=== PATIENT | male | born 2000 | race Caucasian/White ===

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

== ENCOUNTER 2020-02-20 14:57 | Emergency (ER) | payer SELFPAY ==
[2020-02-20 14:58] VITALS: BP 134/90; PULSE 97; RESP 14; TEMP 37; O2SAT 100; BMI 28.2
--- NOTE | 2020-02-20 15:02 | NURSING ---
NO OLD EKGS
--- NOTE | 2020-02-20 15:16 | ED.DCSUM_ITS ---
- ER Visit Summary Date of Service: 02/20/20 Chief Complaint: Chest pain History of Present Illness: The patient is a 19 M who presents with chest pain that began today. Patient states it began after he was using methamphetamines. Patient states he uses methamphetamines daily. Patient states he smokes, i njects, and snorts methamphetamines. Patient describes his pain as aching. Patient states pain is over the substernal area. Patient denies any radiation of the pain. Patient states nothing makes it better or worse. Patient denies any nausea or vomiting. Patient denies any diaphoresis. Patient does admit to some shortness of breath and a cough. Patient denies any fevers or chills. Physical Examination: Vital signs are stable. Patient is afebrile. Patient is in no acute distress. Oral mucosa is pink and moist. Neck is supple. Trachea is midline. There is no JVD noted. Heart was regular rate and rhythm. Lungs are clear and equal bilaterally. Abdomen is soft. Bowel sounds are normal. There is no tenderness. There is no rebound or guarding noted. Skin is warm dry. Cranial nerves II through XII are intact. There are no focal motor or sensory deficits noted. Extremities are intact. There is no calf tenderness or edema. Test Results: EKG showed normal sinus rhythm with a rate of 88. There are no acute ST or T wave changes. CBC was within normal limits. Basic metabolic profile showed a potassium of 2.7. Troponin was normal. Portable chest x-ray was obtained. There is no acute cardiopulmonary process. This was interpreted by the radiologist and reviewed by myself. Emergency Department Course and Treatment: Patient was given aspirin here. Patient is feeling better on reevaluation. Patient was given oral potassium as well as IV potassium. Patient was instructed to follow-up with his primary care physician in 5 to 7 days. Patient was also given referral to [facility]. Patient understood and was agreeable with the plan. All questions were answered. Disposition: Discharge home Impression: 1. Chest pain 2. Methamphetamine abuse 3. Hypokalemia This note was generated with Clandestine Developmentation software. It may contain incorrect words, spelling, and punctuation that were not noted in review of the chart prior to signing ED Disposition - Plan for ED Patient: Disposition: Home or Assisted Living Diagnosis: Chest pain of uncertain etiology, Substance abuse, Hypokalemia Instructions: ED Chest Pain Atypical Unkn Cause Referrals: [facility] [STAFF PHYSICIAN] - 3-5 Days
--- NOTE | 2020-02-20 15:16 | EKG12_ITS ---
Test Reason : CP Blood Pressure : / mmHG Vent. Rate : 088 BPM Atrial Rate : 088 BPM P-R Int : 196 ms QRS Dur : 090 ms QT Int : 348 ms P-R-T Axes : 046 075 -06 degrees QTc Int : 421 ms Normal sinus rhythm ST & T wave abnormality, consider inferior ischemia Abnormal ECG Confirmed by MOISES REYES, RADHA ([id number]), make up editor MADISON HAN ([id number]) on 02/22/2020 1:14:35 PM Referred By: YAKELIN/KARYN Confirmed By:RADHA DE LEON MD
[2020-02-20] MEDS: Aspirin 81 MG TAB.CHEW 324 MG PO (15:37)
[2020-02-20 15:38] VITALS: O2SAT 100
--- NOTE | 2020-02-20 15:45 | RAD_ITS ---
STUDY: X-RAY CHEST REASON FOR EXAM: Male, 19 years old. Chest pain after using METHAMPHETAMINE.. TECHNIQUE: Single AP portable view of the chest. COMPARISON: Chest and right RIBS, 07-14-19. FINDINGS: The lungs are clear and expanded. There is no demonstrated pleural abnormality. Normal size heart. Normal mediastinum and cheryl. Normal visualized pulmonary arteries. Normal visualized aortic arch and descending thoracic aorta. Normal visualized thoracic spine. Normal visualized ribs, clavicles, and shoulders. There is no demonstrated abnormality of the visualized soft tissue structures of the upper abdomen. RAD/Chest 1 View (Portable) IMPRESSION: No acute cardiopulmonary disease or major interval change. Electronically Signed: Pillo Willson DO at 16:17 EDT Tel [phone], Service support ,
[2020-02-20 15:50] LABS: Absolute Lymphocyte Count 0.87 X10^3/uL (0.83-4.51); Absolute Neutrophil Count 7.1 X10^3/uL (2.0-7.7); Basophil# 0.02 X10^3/uL; Basophil% 0.2 % (0-1); Eosinophil# 0.03 X10^3/uL; Eosinophils% 0.4 % (0-5); Hematocrit 42.6 % (40-54); Hemoglobin 15.5 g/dL (13.0-16.5); Lymphocyte # 0.87 X10^3/ul (4.0); Lymphocyte % 10.3 % (19-41); Mean Corp Hgb Conc 36.4 g/dL (32-36); Mean Corpuscular Hgb 31.8 pg (27.0-32.0); Mean Corpuscular Volume 87.3 fL (80-94); Mean Platelet Vol. 10.8 fl (6.2-12.0); Monocyte# 0.47 X10^3/uL; Monocyte% 5.5 % (0-10); NRBC Flagged by Analyzer 0 % (0-5); Neutrophil # 7.06 X10^3/uL (2.7-7.7); Neutrophil % 83.2 % (47-70); Platelet Count 171 K/mm3 (150-450); RBC Distribution Width CV 12.6 % (11.6-14.6); RBC Distribution Width SD 39.6 fl (35.1-43.9); Red Blood Count 4.88 M/mm3 (4.6-6.2); White Blood Count 8.5 K/mm3 (4.4-11.0)
[2020-02-20 16:21] LABS: Anion Gap 6 (5-15); BUN 8 mg/dL (7-18); BUN/Creat Ratio 7.1 RATIO (10-20); Calcium,Total 9.4 mg/dL (8.5-10.1); Chloride 107 mmol/L (98-107); Creatinine, Serum 1.12 mg/dL (0.70-1.30); EST Glomerular Filtration Rate 90 mL/min (>60); Est Glom Filt Rate - Afr Amer 108 mL/min (>60); Estimated Creatinine Clearance 106.09 ml/min; Glucose 117 mg/dL (74-106); Potassium 2.7 mmol/L (3.5-5.1); Sodium Level 138 mmol/L (136-145)
[2020-02-20] MEDS: Potassium Chloride 10mEq/100mL 10 MEQ/100 ML IV.SOLN. 100 MEQ IV BOLUS (17:05)
--- NOTE | 2020-02-20 17:29 | CM.ED ---
SOCIAL WORK Informant: Nursing Reason for Consult: Substance abuse resources Met with patient in room. Introduced role and reason for referral. Patient admits to recent use of meth and states has used heroin in the past. Discussed options for treatment. Patient provided with resource packet. All questions answered. Plan: Home Aleksandr Sanders MSW, ART LIBRARIAN
[2020-02-20 17:42] VITALS: BP 149/96; PULSE 101; RESP 16; O2SAT 100
[2020-02-20 18:21] VITALS: RESP 16
== END 2020-02-20 18:22 | disposition home or self-care (01) ==
PROVIDERS: Emergency Provider Emergency Medicine
DX: R07.9 Chest pain, unspecified (principal); E87.6 Hypokalemia; F15.10 Other stimulant abuse, uncomplicated; Z72.0 Tobacco use
CPT/HCPCS: 71045; 80048; 84484; 85025; 93005; 96365; 99285; J7040

== ENCOUNTER 2020-02-27 18:33 | Emergency (ER) | payer SELFPAY ==
[2020-02-27 18:34] VITALS: BP 120/92; PULSE 88; RESP 18; TEMP 36.4; O2SAT 97; BMI 28.8
--- NOTE | 2020-02-27 19:01 | ED.VISSUMM ---
- ER Visit Summary Date of Service: 02/27/20 Chief Complaint: Abscess History of Present Illness: The patient is a 19 M who injects methamphetamines. He has an abscess to his right forearm. Physical Examination: Patient has a 5 cm abscess to his right proximal forearm, distal to the AC fossa. He is neurovascular intact distally. Test Results: None performed Emergency Department Course and Treatment: Skin was anesthetized with lidocaine infiltration. A superficial incision was made with an 11 blade to express pus and serosanguineous discharge. No significant bleeding or pulsatile bleeding was noted. He remained neurovascularly intact. Pus was expressed. A small amount of induration remained. 1/4 inch packing was placed without difficulty. This was secured in place with tape. Dressing applied. Patient tolerated this well. Patient will be started on Bactrim and Keflex. He was referred for outpatient follow-up. He was advised that this may recur. I do not anticipate any neurovascular issues, but he should return if he has significant bleeding, numbness, or any other concerns. Return for fever or any signs of spreading infection. Treatment Plan: As above Disposition: Discharge Impression: Right forearm abscess This note was generated with [employer] dictation software. It may contain incorrect words, spelling, and punctuation that were not noted in review of the chart prior to signing ED Disposition - Plan for ED Patient: Disposition: Home or Assisted Living Instructions: ED Abscess Incision And Drainage Prescriptions: Smz/Tmp Ds [Bactrim Ds] 1 tab PO BID #14 tab Prescription Printed Cephalexin [Keflex] 500 mg PO Q6 #28 cap Prescription Printed Ibuprofen [Motrin] 800 mg PO TID PRN PRN #20 tab PRN Reason: Pain Or Fever Prescription Printed Referrals: Carli Espinoza [NON-STAFF] - 2 Days for wound check
== END 2020-02-27 19:10 | disposition home or self-care (01) ==
LOC: ED 18:47
PROVIDERS: Emergency Provider Emergency Medicine
DX: L02.413 Cutaneous abscess of right upper limb (principal); F15.90 Other stimulant use, unspecified, uncomplicated
CPT/HCPCS: 10061; 99282

== ENCOUNTER 2020-10-24 23:18 | Emergency (ER) | payer MEDICAID, SELFPAY ==
[2020-04-29 10:00] VITALS: BMI 29.8
[2020-10-24 23:18] VITALS: BP 140/89; PULSE 110; RESP 18; TEMP 36.4; O2SAT 99; BMI 26.6
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
[2020-10-24] MEDS: Clindamycin HCl 150 MG Capsule 450 MG PO (23:55)
== END 2020-10-24 23:57 | disposition home or self-care (01) ==
LOC: ED 23:52
PROVIDERS: Emergency Provider Emergency Medicine; PCP Family Medicine
DX: S01.511A Laceration without foreign body of lip, initial encounter (principal); L08.9 Local infection of the skin and subcutaneous tissue, unspecified; V18.2XXA Unspecified pedal cyclist injured in noncollision transport accident in nontraffic accident, initial encounter; Y93.55 Activity, bike riding; Y92.9 Unspecified place or not applicable; Y99.8 Other external cause status; F17.200 Nicotine dependence, unspecified, uncomplicated
CPT/HCPCS: 99283

== ENCOUNTER 2020-11-22 02:43 | Emergency (ER) | payer MEDICAID, SELFPAY | END 2020-11-22 04:05 | disposition left against medical advice (07) | LOC: ED 07:18 | PROVIDERS: Emergency Provider Emergency Medicine; PCP Family Medicine; Referring Provider Emergency Medicine | DX: R69 Illness, unspecified (principal) ==

== ENCOUNTER 2020-11-22 15:24 | Emergency (ER) | payer MEDICAID, SELFPAY ==
[2020-11-22 15:25] VITALS: BP 131/89; PULSE 102; RESP 15; TEMP 36.4; O2SAT 96; BMI 28.1
--- NOTE | 2020-11-22 15:31 | EDS_ITS ---
HPI History of Present Illness Chief Complaint: Abscess PFSH PFSH Home Medications NK 11/22/20 [History Last Taken Unknown] Allergy/AdvReac Type Severity Reaction Status Date / Time No Known Allergies Allergy Verified 11/22/20 15:30 Social History Smoking Status: Current every day smoker ROS ROS ED ROS Narrative He denies any fever or chills. He denies any constitutional symptoms. Constitutional Constitutional ED: Reports systems reviewed and no addt'l complaints, except as documented Eyes Eyes: Reports systems reviewed and no addt'l complaints, except as documented ENT ENT ED: Reports systems reviewed and no addt'l complaints, except as documented Cardiovascular Cardiovascular: Reports systems reviewed and no addt'l complaints, except as documented; Denies abdominal bloating, abdominal edema or abdominal pain Respiratory/Chest Respiratory/Chest: Reports systems reviewed and no addt'l complaints, except as documented; Denies change in mental status, chest congestion, chest tightness or cough Gastrointestinal Gastrointestinal: Reports systems reviewed and no addt'l complaints, except as documented; Denies coffee ground emesis, fecal incontinence or nausea Genitourinary Genitourinary ED: Reports systems reviewed and no addt'l complaints, except as documented; Denies abdominal discomfort or burning urination Musculoskeletal Musculoskeletal: Reports systems reviewed and no addt'l complaints, except as documented Integumentary Reports systems reviewed and no addt'l complaints, except as documented Neurologic Neurologic: Reports systems reviewed and no addt'l complaints, except as do cumented; Denies abnormal hearing, abnormal movements, abnormal speech or behavior changes Psychiatric Psychiatric: Reports systems reviewed and no addt'l complaints, except as documented; Denies change in appetite or suicidal ideation Endocrine Endocrinology: Reports systems reviewed and no addt'l complaints, except as documented Hematologic/Lymphatic Hematologic/Lymphatic: Reports systems reviewed and no addt'l complaints, except as documented Allergic/Immunologic Allergic/Immunologic ED: Reports systems reviewed and no addt'l complaints, except as documented; Denies mouth swelling or hives EXAM Physical Exam Narrative Exam Narrative: 19-year-old male seen earlier this morning. Left arm antecubital abscess for 3 days from his history of IV methamphetamine abuse. Earlier this morning was seen in this emergency department and had an I&D done and was placed on Keflex and Bactrim which she has not filled as of yet. He denies any other complaints. He denies any fever or chills. Is a benign- appearing exam except for the left arm abscess. Const Vital Signs: 11/22/20 15:25 Temperature 97.6 F L Temperature Source Temporal Pulse Rate 102 H Respiratory Rate 15 Blood Pressure 131/89 H Blood Pressure Mean 103 Pulse Ox 96 Oxygen Delivery Method Room Air Positive well nourished, well developed and average body habitus; Negative for cachectic General Appearance ED: active, cooperative, comfortable, well developed and non- toxic; Negative for cachectic, grossly edematous or odor of alcohol detected Orientation / Consciousness: awake, oriented to person, oriented to place and oriented to time; Negative for obtunded or lethargic Exam Limitations: no limitations Nutritional Appearance: Negative for cachectic HEENT Reports normocephalic, head/scalp atraumatic, hearing grossly normal bilaterally and moist oral mucous membranes; Denies dry mucous membranes normocephalic and atraumatic; Negative for trauma or tenderness Face and Sinus: normal facial exam Nose: external nose normal General Ear: No hearing grossly impaired External Ear: external ears normal Mouth ED: No dry mucous membranes Mouth: No dry mucous membranes Eyes PERRL Neck no lymphadenopathy, supple and no JVD General: Negative for tenderness Chest Wall inspection of chest normal Resp normal respiratory effort and clear to auscultation bilaterally Cardio regular rate, regular rhythm and no murmurs GI normal to inspection, nondistended, normoactive bowel sounds Back/Spine no CVA tenderness Thoracic Spine / Upper Back: Negative for thoracic spinal tenderness Extremity normal to inspection Extremity Narrative: Right upper extremity unremarkable. Left upper extremity shows a cubital abscess 1 to 2 inches in length. Red and raised and tender. There is a small amount of purulent discharge. Left extremity no swelling or pulse. Neuro oriented x3 Sensorium / Orientation: alert Skin no rashes or lesions noted MDM MDM MDM Narrative Medical decision making narrative: Left arm subcu abscess secondary to IV drug abuse. He was seen earlier this morning in this emergency department had an incision and drainage done and had prescriptions written for both antibiotics Keflex and Bactrim. He is yet to have gotten those filled. The abscess is currently draining a small amount of pus. There is no proximal lymphadenopathy nor lymphatic streaking. He does not look septic and he does not have Discharge Plan Triage Chief Complaint: Abscess ED Provider: Nicko Walters Dx/Rx/DC Orders Prescriptions: No Action NK RF: 0 Primary Care Provider: Carroll Choi
--- NOTE | 2020-11-22 16:56 | EDS_ITS ---
HPI History of Present Illness Chief Complaint: Abscess Informant: patient Onset/Context/Timing Onset: Days Context: Gradual Onset Current Severity: Mild Maximum Severity: Mild Narrative Prior similar symptoms: Yes Recent Illness/Hospitalization: No PFSH PFSH Home Medications cephalexin 500 mg PO Q6H #40 cap 11/22/20 [Rx Last Taken Unknown] sulfamethoxazole-trimethoprim [Bactrim] 1 tab PO BID 10 Days #20 tab 11/22/20 [Rx Last Taken Unknown] Allergy/AdvReac Type Severity Reaction Status Date / Time No Known Allergies Allergy Verified 11/22/20 15:30 no significant family history Social History Smoking Status: Current every day smoker Addt'l Information Additional Findings: History of IV drug abuse including methamphetamines and cocaine. ROS ROS ED Constitutional Constitutional ED: Denies chills, fever(s), subjective or sweats Eyes Eyes: Denies change in vision ENT ENT ED: Denies rhinorrhea or sore throat Cardiovascular Cardiovascular: Denies chest pain or palpitations Respiratory/Chest Respiratory/Chest: Denies cough or dyspnea Gastrointestinal Gastrointestinal: Denies abdominal pain or nausea Genitourinary Genitourinary ED: Denies dysuria or hematuria Musculoskeletal Musculoskeletal: Denies arthralgias or myalgias Integumentary Reports abscess; Denies rash Neurologic Neurologic: Denies headache(s) Psychiatric Psychiatric: Denies depression Endocrine Endocrinology: Denies polyuria Allergic/Immunologic Allergic/Immunologic ED: Denies urticaria EXAM Physical Exam Narrative Exam Narrative: History of Left arm antecubital abscess from IV drug abuser. Seen in this Emergency department earlier this morning. Discharge had I&D performed. Started on oral antibiotics Keflex and Bactrim. Has not filled those yet. Const Vital Signs: 11/22/20 15:25 Temperature 97.6 F L Temperature Source Temporal Pulse Rate 102 H Respiratory Rate 15 Blood Pressure 131/89 H Blood Pressure Mean 103 Pulse Ox 96 Oxygen Delivery Method Room Air Positive well nourished and well developed General Appearance ED: well developed and other HEENT Reports moist mucous membranes HEENT Narrative: Unremarkable. Eyes PERRL and EOMs intact bilaterally Neck no lymphadenopathy and supple Chest Wall inspection of chest normal Resp normal respiratory effort and clear to auscultation bilaterally Cardio regular rate, regular rhythm and no murmurs GI non-tender and non-distended Palpation: soft Back/Spine no CVA tenderness Extremity normal to inspection Extremity Narrative: Left arm antecubital abscess about 1 inch. No fluctuance. No lymphangitic streaking. No lymphadenopathy. Minimally tender. Neuro oriented x3 Sensorium / Orientation: alert Motor Exam: strength 5/5 throughout Psych mental status grossly normal Skin no rashes or lesions noted Skin Narrative: Left arm antecubital abscess. MDM MDM MDM Narrative Medical decision making narrative: Used for local anesthetic. I placed a 21- gauge needle in the left arm abscess without any significant pus. No further incision and drainage is needing at this time. There is no fluctuance. No lymphadenopathy. No lymphangitic streaking. Discharge Plan Triage Chief Complaint: Abscess ED Provider: Nicko Walters Dx/Rx/DC Orders Clinical Impression: Substance abuse, Abscess Instructions: ED Abscess Antibiotic Treatment Only Prescriptions: New cephalexin 500 mg capsule 500 mg PO Q6H Qty: 40 RF: 0 sulfamethoxazole-trimethoprim [Bactrim] 400-80 mg tablet 1 tab PO BID 10 Days Qty: 20 RF: 0 Primary Care Provider: Carroll Choi Referrals: Carroll Choi MD [Primary Care Provider] - Marco Boone MD [STAFF PHYSICIAN] - 2 Days Disposition Patient Disposition: Home, self care
[2020-11-22] MEDS: Smz/Tmp Ds Tablet 1 TABLET PO (17:28)
[2020-11-22] MEDS: Cephalexin 250 MG Capsule 500 MG PO (17:28)
== END 2020-11-22 17:51 | disposition home or self-care (01) ==
PROVIDERS: Emergency Provider Emergency Medicine; PCP Family Medicine
DX: L02.414 Cutaneous abscess of left upper limb (principal); F15.10 Other stimulant abuse, uncomplicated; F14.10 Cocaine abuse, uncomplicated; F17.200 Nicotine dependence, unspecified, uncomplicated
CPT/HCPCS: 10060; 99283; A4216